=== PATIENT | female | born 1980 | race Caucasian/White ===

== ENCOUNTER 2018-01-11 18:21 | Emergency (ER) | payer BC ==
[~2018-01-11] VITALS: Ht 165.1 cm; Wt 77.3 kg
[2018-01-11 18:23] VITALS: BP 107/69; PULSE 95; TEMP 97.8
[2018-01-11] MEDS ORDERED: SYNTHROID0.075 MG/T PO (18:47)
[2018-01-11] MEDS ORDERED: WELLBUTRIN 75MG75 MG PO (18:47)
[2018-01-11] MEDS ORDERED: VOLTAREN 75 DR75 MG PO (19:01)
== END 2018-01-11 19:14 | disposition home or self-care (01) ==
LOC: COL.ER 18:21
DX: S93.401A Sprain of unspecified ligament of right ankle, initial encounter (principal); Y92.009 Unspecified place in unspecified non-institutional (private) residence as the place of occurrence of the external cause; X50.0XXA Overexertion from strenuous movement or load, initial encounter

== ENCOUNTER → 2018-07-22 | Outpatient (CLI) | payer BC ==
[~2018-07-22] VITALS: Ht 165.1 cm; Wt 78.2 kg
[~2018-07-22] MED LIST: SYNTHROID0.075 MG/T PO; VOLTAREN 75 DR75 MG PO; WELLBUTRIN SR100 M1 PO; WOMEN'S DAILY1 TAB PO; XYZAL5 MG PO
[2018-07-22 09:02] VITALS: BP 110/64; PULSE 100
== END ==
LOC: LIGHT 08:49
DX: E66.3 Overweight (principal); F41.1 Generalized anxiety disorder; Z68.28 Body mass index [BMI] 28.0-28.9, adult; Z71.3 Dietary counseling and surveillance
CPT/HCPCS: G0463

== ENCOUNTER → 2018-08-25 | Outpatient (CLI) | payer BC | LOC: LIGHT 13:51 → BHSO 13:51 | DX: F41.9 Anxiety disorder, unspecified (principal); E66.3 Overweight; Z68.28 Body mass index [BMI] 28.0-28.9, adult; Z71.3 Dietary counseling and surveillance ==

== ENCOUNTER → 2018-08-26 | Outpatient (CLI) | payer BC | LOC: LIGHT 11:19 | DX: F41.1 Generalized anxiety disorder (principal); E66.3 Overweight; Z68.28 Body mass index [BMI] 28.0-28.9, adult; Z71.3 Dietary counseling and surveillance ==

== ENCOUNTER → 2018-08-28 | Outpatient (CLI) | payer BC ==
[~2018-08-28] VITALS: Ht 165.1 cm; Wt 78.5 kg
[2018-08-28 16:42] VITALS: BP 114/74; PULSE 64
== END ==
LOC: LIGHT 13:07
DX: F41.1 Generalized anxiety disorder (principal); E66.3 Overweight; Z68.28 Body mass index [BMI] 28.0-28.9, adult; Z71.3 Dietary counseling and surveillance
CPT/HCPCS: G0463

== ENCOUNTER → 2018-10-09 | Outpatient (CLI) | payer BC ==
[~2018-10-09] VITALS: Ht 165.1 cm; Wt 76.4 kg
== END ==
LOC: LIGHT 15:08
DX: F41.1 Generalized anxiety disorder (principal); E66.3 Overweight; Z71.3 Dietary counseling and surveillance
CPT/HCPCS: G0463

== ENCOUNTER → 2018-11-20 | Outpatient (CLI) | payer BC ==
[~2018-11-20] VITALS: Ht 165.1 cm; Wt 73.9 kg
[2018-11-20 16:24] VITALS: BP 120/80; PULSE 84
== END ==
LOC: LIGHT 15:21
DX: E66.9 Obesity, unspecified (principal); F41.1 Generalized anxiety disorder; Z68.27 Body mass index [BMI] 27.0-27.9, adult; Z71.3 Dietary counseling and surveillance
CPT/HCPCS: G0463

== ENCOUNTER → 2019-01-29 | Outpatient (CLI) | payer BC ==
[~2019-01-29] VITALS: Ht 165.1 cm; Wt 71.9 kg
[2019-01-29 16:58] VITALS: BP 110/66; PULSE 88
== END ==
LOC: LIGHT 01-01 11:15
DX: F41.1 Generalized anxiety disorder (principal); E66.9 Obesity, unspecified; Z68.26 Body mass index [BMI] 26.0-26.9, adult; Z71.3 Dietary counseling and surveillance
CPT/HCPCS: G0463

== ENCOUNTER → 2019-07-30 | Outpatient (CLI) | payer BC ==
[~2019-07-30] VITALS: Ht 165.1 cm; Wt 73.5 kg
[~2019-07-30] MED LIST changes: +MASON NATURAL325 MG PO; +PHENTERMINE15 MG PO
[2019-07-30 11:56] VITALS: BP 114/76; PULSE 94
== END ==
LOC: LIGHT 05-07 15:04
DX: F41.1 Generalized anxiety disorder (principal); E66.3 Overweight; Z68.27 Body mass index [BMI] 27.0-27.9, adult; Z71.3 Dietary counseling and surveillance
CPT/HCPCS: G0463

== ENCOUNTER → 2019-09-03 | Outpatient (CLI) | payer BC ==
[~2019-09-03] VITALS: Ht 165.1 cm; Wt 73.5 kg
[2019-09-03 14:48] VITALS: BP 108/56; PULSE 102
== END ==
LOC: LIGHT 13:44
DX: F41.1 Generalized anxiety disorder (principal); E66.3 Overweight; Z68.27 Body mass index [BMI] 27.0-27.9, adult; Z71.3 Dietary counseling and surveillance
CPT/HCPCS: G0463

== ENCOUNTER → 2022-04-10 | Outpatient (CLI) | payer BC | LOC: MC.RAD 13:18 | DX: Z12.31 Encounter for screening mammogram for malignant neoplasm of breast (principal) ==

== ENCOUNTER → 2022-04-16 | Outpatient (CLI) | payer BC | LOC: MC.RAD 10:51 | DX: Z12.31 Encounter for screening mammogram for malignant neoplasm of breast (principal); N63.20 Unspecified lump in the left breast, unspecified quadrant ==

== ENCOUNTER → 2023-01-08 | Outpatient (CLI) | payer BC | LOC: MC.RAD 13:43 | DX: R92.8 Other abnormal and inconclusive findings on diagnostic imaging of breast (principal) ==

== ENCOUNTER → 2024-05-07 | Outpatient (CLI) | payer BC | LOC: MC.RAD 13:16 | DX: Z12.31 Encounter for screening mammogram for malignant neoplasm of breast (principal); N63.10 Unspecified lump in the right breast, unspecified quadrant ==